=== PATIENT | male | born 1965 | race African-American/Black ===

== ENCOUNTER 2021-05-29 10:29 | Emergency (ER) | payer MEDICAID ==
[~2021-05-29] VITALS: Ht 188 cm; Wt 91.0 kg
[2021-05-29 11:19] LABS: HEMATOCRIT. 40.5 % (42.0-52.0); HEMOGLOBIN. 13.7 g/dL (14.0-18.0); MEAN CORPUSCULAR HEMOGLOBIN 35.1 pg (28.0-32.0); MEAN CORPUSCULAR VOLUME 103.6 fL (80.0-94.0); MEAN PLATELET VOLUME 7.8 fl (7.4-10.4); PLATELET 254 x1000/uL (130-400); RED BLOOD CELL COUNT 3.91 mill/uL (4.7-6.1); RED CELL DISTRIBUTION WIDTH 13.7 % (11.6-14.6)
[2021-05-29 11:25] LABS: CHLORIDE 105 mEq/L (98-107)
[2021-05-29 11:42] LABS: PLATELET ESTIMATE NORMAL
[2021-05-29] MEDS ORDERED: LIDOCAINE HCL/PF 1% 10 MG/ML 5ML VIAL INFIL ONE (12:15)
[2021-05-29] MEDS ORDERED: TETANUS, DIPHTHERIA, PERTUSSIS VAC/PF 0.5ML (>7YR OLD) IM ONE (12:15)
[2021-05-29] MEDS ORDERED: T3 PO (13:09)
[2021-05-29 14:57] VITALS: BP 146/66
== END 2021-05-29 14:58 | disposition home or self-care (01) ==
LOC: ER 10:52
DX: S22.31XA Fracture of one rib, right side, initial encounter for closed fracture (principal); S02.31XB Fracture of orbital floor, right side, initial encounter for open fracture; R55 Syncope and collapse; V47.5XXA Car driver injured in collision with fixed or stationary object in traffic accident, initial encounter; Y93.89 Activity, other specified; Y92.488 Other paved roadways as the place of occurrence of the external cause
CPT/HCPCS: 12011; 36415; 70450; 70486; 71101; 74176; 80053; 82962; 84484; 85025; 90471; 90715; 93005; 99285; J3490